=== PATIENT | male | born 1945 | race Caucasian/White ===

== ENCOUNTER 2024-01-26 14:05 | Outpatient (CLI) | payer MEDICARE, SELFPAY ==
--- NOTE | 2024-01-26 12:45 | DI.RAD_ITS ---
Exam(s) XR FOOT RT COMPLETE EXAM: XR FOOT RT COMPLETE CLINICAL HISTORY: M79.674 pain, toe injury. r/o fracture. 4th/5th metatarsal dist. TECHNIQUE: 2D digital imaging was performed of the right foot. Three images were obtained. AP, obl ique and lateral views were obtained. COMPARISON: No exams were available for comparison FINDINGS: BONES: There is an acute nondisplaced fracture involving the proximal metaphyseal region of the proxi mal phalanx of the 5th toe. No bony destructive lesion is seen. JOINTS: No dislocation present. The joint spaces are well maintained. SOFT TISSUE: Soft tissue swelling of the 5th toe. IMPRESSION: Nondisplaced fracture involving the proximal phalanx of the 5th toe with associated soft tissue swell ing. DATA REPOSITORY: RADIATION DOSE DELIVERED:
== END 2024-01-26 14:25 ==
LOC: DI 14:05
PROVIDERS: Visit Provider Physician Assistant
DX: M79.674 Pain in right toe(s) (principal); S92.514A Nondisplaced fracture of proximal phalanx of right lesser toe(s), initial encounter for closed fracture
CPT/HCPCS: 73630

== ENCOUNTER 2024-04-06 14:06 | Emergency (ER) | payer MEDICARE, SELFPAY ==
--- NOTE | 2024-04-06 14:00 | RT.EKG_ITS ---
APPROVED REPORT Exam: Resting ECG Reason for Exam: sob Patient Location: E HR:55 bpm ECG Measurements Heart Rate 55 AXIS OH 199 P 59 QRSd 96 QRS -11 QT 425 T 45 QTc 405 Conclusion Sinus bradycardia 55 normal axis no stemi
[2024-04-06 14:08] VITALS: BP 138/72; PULSE 60; RESP 18; TEMP 36.3; O2SAT 98
[2024-04-06 14:12] VITALS: BP 138/72; PULSE 60; RESP 18; TEMP 36.3; O2SAT 98
[2024-04-06 15:00] LABS: Abs Immature Grans 0.03 10^3/uL (0.0-0.06); Absolute Basophil Count 0.04 10^3/uL (0.0-0.2); Absolute Eosinophil Count 0.13 10^3/uL (0.0-0.7); Absolute Lymphocyte Count 2.26 10^3/uL (1.2-3.4); Absolute Monocyte Count 0.54 10^3/uL (0.1-0.8); Absolute Neutrophil Count 4.27 10^3/uL (1.2-6.7); Basophils % 0.6 %; Eosinophils % 1.8 %; HCT 35.1 % (40.0-50.0); HGB 11.6 g/dL (13.5-17.5); Immature Grans % 0.4 %; Lymphocytes % 31.1 %; MCH 30.3 pg (27.0-33.0); MCV 92 fL (80-95); MPV 10.4 fL (8.0-11.0); Monocytes % 7.4 %; Neutrophils % 58.7 %; Platelet Count 289 10^3/uL (130-400); RBC 3.83 10^6/uL (4.36-5.78); RDW-SD 47.2 fL; WBC 7.27 10^3/uL (4.4-10.8)
[2024-04-06 15:18] LABS: ALT 32 U/L (16-63); AST 23 U/L (15-37); Albumin 3.7 g/dL (3.4-5.0); Alkaline Phosphatase 38 U/L (46-116); Anion Gap 6.5 mmol/L (3-11); BUN 30 mg/dL (7-18); Bilirubin, Total 0.46 mg/dL (0.2-1.0); CO2 28.5 mmol/L (21.0-32.0); CREATININE 1.2 mg/dL (0.70-1.30); Calcium 8.6 mg/dL (8.5-10.1); Chloride 106 mmol/L (98-107); Estimated GFR 61.52 (mL/min/1.73m2); Glucose 87 mg/dL (74-106); Potassium 4.2 mmol/L (3.5-5.1); Sodium 141 mmol/L (136-145); Troponin I 6 ng/L (<or=76)
[2024-04-06 15:21] LABS: NT-proBNP 131 pg/mL (<300)
--- NOTE | 2024-04-06 15:24 | DI.RAD_ITS ---
Exam(s) XR CHEST 2V PA LATERAL EXAM: XR CHEST 2V PA LATERAL CLINICAL HISTORY: sob TECHNIQUE: 2D digital imaging was performed of the chest. Two images were obtained. PA and lateral views were obtained. COMPARISON: No exams were available for comparison FINDINGS: MEDIASTINUM: Normal. HEART: Normal. PULMONARY VASCULATURE: Normal. LUNGS: Clear. PLEURAL SPACE: No pleural effusion or pneumothorax. BONE:Within normal limits for the patient's age. OTHER FINDINGS:Normal. IMPRESSION: No acute pulmonary findings. DATA REPOSITORY: RADIATION DOSE DELIVERED:
[2024-04-06] MEDS: Omnipaque 350 MG/ML 100 ML BTL IJ (16:22)
[2024-04-06] MEDS: Normal Saline - Diluent 50 ML VIAL IJ (16:23)
--- NOTE | 2024-04-06 16:35 | DI.CT_ITS ---
Exam(s) CT CHEST PE CTA EXAM: CT CHEST PE CTA CLINICAL HISTORY: sob. TECHNIQUE: Imaging Protocol: Axial CT angiography was performed with multi-slice acquisition and mu lti-planar and/or 3D reconstructions. CONTRAST MATERIAL: Intravenous: Omnipaque 350 contrast volume:100 mL. The scan is limited due to IV malfunction. COMPARISON: CR XR CHEST 2V PA LATERAL from 04/06/2024 FINDINGS: There is suboptimal opacification of the pulmonary arteries. Tracheobronchial tree: Patent where visualized. No bronchiectasis. Pulmonary parenchyma: There is a small infiltrate seen in the superior segment of the right lower lob e. The lungs are otherwise clear. No suspicious pulmonary nodules are seen. Dependent atelectasis is seen in the lung bases. Pulmonary Arteries: Within the limits of the examination, no central pulmonary embolus is seen. Mediastinum and [place]: No dominant adenopathy or fluid collection. The esophagus is unremarkable. Ca lcified lymph nodes are seen in the mediastinum and hilum consistent with prior granulomatous disease . Visualized thyroid gland: Unremarkable. Pleura: No effusion or pneumothorax. Mild pleural calcification is present which can be seen with santos or exposure to asbestos. Heart: The heart is not dilated. Three vessel coronary artery calcification is present. No pericardi al effusion. Aorta: Thoracic aorta non-dilated. Atherosclerotic calcification is present. Upper abdomen: Unremarkable. Soft tissues: There is bilateral gynecomastia. Bones: Within normal limits for the patient's age. IMPRESSION: 1. Examination is limited due to IV malfunction. 2. Within the limits of the examination, no central pulmonary embolism is present. 3. Small infiltrate in the superior segment of the right lower lobe. This may represent atelectasis or pneumonia. Please correlate clinically. RADIATION DOSE DELIVERED: 120.94mGy.cm Total DLP DATA REPOSITORY: All CT scans at this facility are submitted to the National Radiology Data Registry (NRDR) Dose Index Registry (DIR) with the [employer] [place] ([employer]). RADIATION OPTIMIZATION: All CT scans at this facility use at least one of these dose optimization te chniques: automated exposure control; mA and/or kV adjustment per patient size (includes targeted exa ms where dose is matched to clinical indication); or iterative reconstruction.
--- NOTE | 2024-04-06 21:09 | ED.GENADUL_ITS ---
Discharge Plan Disposition Patient Disposition: Home Condition: Stable Discharge Details Clinical Impression: DANG (dyspnea on exertion) Primary Care Provider: [facility] Provider: Grace Sanchez Home Meds and New Rx's Prescriptions: No Action alendronate 70 mg tablet 70 mg PO .weekly Discharge Instructions Instructions: Shortness of Breath, Adult ED Additional Instructions: * you have been referred to pulmonary clinic for further lung function testing * schedule appointment to follow up with them * return with worsening symptoms or any chest pain HPI General Date/Time Provider Initiated Documentation: 04/06/24 14:27 . Limitations to Documentation: no limitations . Information obtained by: patient . HPI Narrative: 79-year-old gentleman with past medical history of fungal lung infection requiring lobectomy presents for evaluation of shortness of breath on exertion. He reports that he had surgery about 12 years ago in [place]. He states that since then he has been doing great is no complications he has no medical problems. He is very fit and active. Over the last 3 weeks he has noted that he had some shortness of breath with exertion. The exertion is typically while doing some hiking or other fairly strenuous activities. Does not occur with basic daily activities. Does improve with rest. He does not have any chest pain with this. He denies any fever chills or other Related Data Home Medications ?Medication ?Instructions ?Recorded ?Confirmed alendronate 70 mg tablet 70 mg PO .weekly 04/06/24 04/06/24 Allergies Allergy/AdvReac Type Severity Reaction Status Date / Time iodine Allergy Intermediate Skin Rash Verified 04/06/24 14:12 General Stated Complaint: RespSymp CALE: 3 Exam Narrative Exam Narrative: Review of Systems: All systems reviewed & are unremarkable except as noted in HPI and below Well-developed, no acute distress NCAT PERRL, normal conjunctiva RRR Unlabored respiratory effort CTAB Nondistended abdomen Extremities w/o deformity, no cyanosis, no edema No rashes or lesions. no focal neurologic deficits Appropriate mood and affect Course Vital Signs Vital signs: Vital Signs Temperature 36.3 C L 04/06/24 14:08 Pulse 60 04/06/24 14:08 Respiratory Rate 18 04/06/24 14:08 Blood Pressure 138/72 04/06/24 14:08 Pulse Oximetry 98 04/06/24 14:08 Temperature 36.3 C L 04/06/24 14:12 Temperature Source Temporal Artery Scan 04/06/24 14:12 Pulse 60 04/06/24 14:12 Respiratory Rate 18 04/06/24 14:12 Respiratory Effort Normal, Non-Labored 04/06/24 14:38 Blood Pressure 138/72 04/06/24 14:12 Blood Pressure Position Sitting 04/06/24 14:12 Pulse Oximetry 98 04/06/24 14:12 Oxygen Delivery Method Room Air 04/06/24 14:12 Oxygen Flow Rate 0 04/06/24 14:12 Lab/Test Results Lab/Test Results: Laboratory Tests Range/Units 04/06/24 14:55 WBC (4.4-10.8) 10^3/uL 7.27 RBC (4.36-5.78) 10^6/uL 3.83 L Hgb (13.5-17.5) g/dL 11.6 L Hct (40.0-50.0) % 35.1 L MCV (80-95) fL 92 MCH (27.0-33.0) pg 30.3 MCHC (32.0-36.0) % 33.0 RDW (11.8-14.1) % 14.0 Plt Count (130-400) 10^3/uL 289 MPV (8.0-11.0) fL 10.4 Immature Gran % % 0.4 Neutrophils % % 58.7 Lymphocytes % % 31.1 Monocytes % % 7.4 Eosinophils % % 1.8 Basophils % % 0.6 Nucleated RBC % (0.0-0.3) % 0.0 Absolute Neutrophils (1.2-6.7) 10^3/uL 4.27 Absolute Lymphocytes (1.2-3.4) 10^3/uL 2.26 Absolute Monocytes (0.1-0.8) 10^3/uL 0.54 Absolute Eosinophils (0.0-0.7) 10^3/uL 0.13 Absolute Basophils (0.0-0.2) 10^3/uL 0.04 Sodium (136-145) mmol/L 141 Potassium (3.5-5.1) mmol/L 4.2 Chloride (98-107) mmol/L 106 Carbon Dioxide (21.0-32.0) mmol/L 28.5 Anion Gap (3-11) mmol/L 6.5 BUN (7-18) mg/dL 30 H Creatinine (0.70-1.30) mg/dL 1.2 Est GFR (CKD-EPI 2020) (mL/min/1.73m2) 61.52 Glucose (74-106) mg/dL 87 Calcium (8.5-10.1) mg/dL 8.6 Total Bilirubin (0.2-1.0) mg/dL 0.46 AST (15-37) U/L 23 ALT (16-63) U/L 32 Alkaline Phosphatase (46-116) U/L 38 L Troponin I (<or=76) ng/L 6 NT-Pro-B Natriuret Pep (<300) pg/mL 131 Total Protein (6.4-8.2) g/dL 7.0 Albumin (3.4-5.0) g/dL 3.7 Medical Decision Making Emergent evaluation of dyspnea on exertion. Initial differential includes ACS, pneumonia, worsened pulmonary functioning. The patient does not have history of hypertension CAD or CHF. He has no chest pain associated with these episodes of shortness of breath. He has not had any sick symptoms of concern. EKG reviewed and independently interpreted: Sinus bradycardia 55 normal axis no STEMI. Lab work was obtained. He has no leukocytosis. Mild anemia of 11 and 35. No priors for comparison. BUN slightly elevated at 30. Creatinine 1.2. No significant electrolyte derangement. Troponin is not elevated. BNP is not elevated. Chest x-ray was noncontributory. A CTA was obtained to further evaluate for potential Etiologies of his dyspnea on exertion. I did discuss the CT scan with the radiologist and there does not appear to be any recurrence of fungal type infection. This CT was read as a possible infiltrate in the right lower lobe, the patient does not have any signs or symptoms concerning for pneumonia. I do not feel that antibiotics are indicated. At this point no clear etiologies of his symptoms. Will refer to pulmonary clinic for further evaluation and PFT. Return precautions advised. Quality:SDOH Health Related Social Needs: No Data to Display PFSH All Active Problems DANG (dyspnea on exertion) (Acute) Social History Smoking/Tobacco Use Status: Never Smoking risk assessment performed?: Yes Drug use: Never Substance use type: does not use PAWSS Have you Been Recently Intoxicated or Drunk Within the Last 30 days?: No Have you Ever Experienced Previous Episodes of Alcohol Withdrawal?: No Have you ever Experienced Withdrawal Seizures?: No Have you ever Experienced Delirium Tremens(DT)s?: No Have you ever undergone Alcohol Rehabilitation Treatment (i.e, inpt ot outpatient treatment programs)?: No Have you ever Experienced Blackouts?: No Have you ever Combined Alcohol with other Downers within the last 90 days?: No Have you ever Combined Alcohol with any other Substance of Abuse during the last 90 days?: No Positive Blood Alcohol level on Presentation? [PCS.BAL]: No Evidence of Increased Autonomic Activity (i.e. HR>120, tremor, sweating, agitation, nausea)?: No Result: 0
== END 2024-04-06 17:43 | disposition home or self-care (01) ==
PROVIDERS: Emergency Provider Emergency Medicine
DX: R06.09 Other forms of dyspnea (principal); R00.1 Bradycardia, unspecified; Z90.2 Acquired absence of lung [part of]
CPT/HCPCS: 71275; 80053; 93005; 99284; 71046; 83880; 84484; 85025; 93010; 99283; J3490